=== PATIENT | male | born 1970 | race Caucasian/White ===

== ENCOUNTER 2019-05-02 17:35 | Emergency (ER) | payer OTHER ==
[2019-05-02 17:53] VITALS: BP 147/96; PULSE 85; TEMP 98.2; BMI 27.8
[2019-05-02] MEDS ORDERED: PIPERACILLIN/TAZOB 3.375 GM 3.375 GM in DEXTROSE 5%-WATER - 50 ML IVPB ONE (18:11)
[2019-05-02] MEDS ORDERED: VANCOMYCIN 1 GM in D5W (PRE-DOCKED) 1,000 MG/250 ML IVPB ONE (18:11)
--- NOTE | 2019-05-02 18:11 | PDOC ---
Documentation entered by Meryl Nguyen SCRIBE, acting as scribe for Solange Gonzalez MD. Solange Gonzalez MD: This documentation has been prepared by the Wendy ann Xhesika, SCRIBE, under my direction and personally reviewed by me in its entirety. I confirm that the documentation accurately reflects all work, treatment, procedures, and medical decision making performed by me. History of Present Illness - General Chief Complaint: Wound Stated Complaint: LEFT EAR SWELLING History Source: Patient Exam Limitations: No Limitations - History of Present Illness Initial Comments: 05/02/19 18:03 The patient is a 48 year old male, with a significant PMH of bipolar disorder who presents to the emergency department with one week of L ear swelling radiating down to his L neck. The patient states he had a small cyst on his L ear for the past year, however, recently, he has been picking on his ear trying to pop the pimple. The patient states his pain is an 8/10, worsened when lying on his ear and associated with yellow ear discharge. The patient notes his jaw and mouth were slightly stiff yesterday but has since been resolved. The patient denies chest pain, shortness of breath, headache and dizziness. Denies fever, chills, nausea, vomiting, diarrhea and constipation. Denies dysuria, frequency, urgency and hematuria. Allergies: NKA Past History - Past Medical History Allergies/Adverse Reactions: Allergies Allergy/AdvReac Type Severity Reaction Status Date / Time No Known Allergies Allergy Verified 05/02/19 17:37 Home Medications: Ambulatory Orders Zasperdone 80 mg PO BID 05/02/19 Review of Systems - Review of Systems Able to Perform ROS?: Yes Comments:: 05/02/19 18:05 GENERAL/CONSTITUTIONAL: No fever or chills. No weakness. HEAD, EYES, EARS, NOSE AND THROAT: (+) L ear swelling radiating to L neck. (+) L ear discharge. No change in vision. No sore throat. CARDIOVASCULAR: No chest pain or shortness of breath. RESPIRATORY: No cough, wheezing, or hemoptysis. GASTROINTESTINAL: No nausea, vomiting, diarrhea or constipation. GENITOURINARY: No dysuria, frequency, or change in urination. MUSCULOSKELETAL: No joint or muscle swelling or pain. No neck or back pain. SKIN: No rash NEUROLOGIC: No headache, vertigo, loss of consciousness, or change in strength/ sensation. ENDOCRINE: No increased thirst. No abnormal weight change. HEMATOLOGIC/LYMPHATIC: No anemia, easy bleeding, or history of blood clots. ALLERGIC/IMMUNOLOGIC: No hives or skin allergy. *Physical Exam - Vital Signs Last Vital Signs Temp Pulse Resp BP Pulse Ox 98.2 F 85 20 147/96 100 05/02/19 17:36 05/02/19 17:36 05/02/19 17:36 05/02/19 17:36 05/02/19 17:36 - Physical Exam Comments: 05/02/19 18:09 awake alert lungs clear bilat heart rrr no mrg abd soft nt nd left ear wtih significant swelling , anterior auricular nodes ttp. posterior auricular fullness, erythema lateral down to left lateral neck. pain with jaw opening. no trismus. ext wwp no edema. no calf tenderness. ED Treatment Course - RADIOLOGY Radiology Studies Ordered: Category Date Time Status SOFT TISSUE NECK CT WITH CONTR [CT] Stat CT Scan 05/02/19 18:06 Ordered Medical Decision Making - Medical Decision Making 05/02/19 18:10 48 yo h/o pre DM here with left ear swelling anterior lateral displacement concern for significant abscess, mastoiditis, plan iv abx vancomycin, zosyn, will obtain ct neck r/o mastoiditis. abscess. may require transfer for ENT evaluation. 05/02/19 18:33 pt not wanting to wait for CT and potentional transfer. will take his mother home and return or fu with ED for evluation and abx. explained to pt he will require abx and drainage by search developer. pt wishing to leave. would like to go directly to tertiary center for specialist evaluation after he brings his mother home. 05/02/19 18:37 *DC/Admit/Observation/Transfer Diagnosis at time of Disposition: Abscess, earlobe - Discharge Dispostion Disposition: AGAINST MEDICAL ADVICE Decision to Admit order: No - Referrals - Patient Instructions Printed Discharge Instructions: DI for Skin Abscess Additional Instructions: understand you need to have drainage of the abscess in your ear. you need to return to ED for evaluation immediately. this infection is very serious. please return [facility] for evaluation and treatment. - Post Discharge Activity
== END 2019-05-02 19:16 | disposition left against medical advice (07) ==
LOC: FER 17:35
DX: H60.02 Abscess of left external ear (principal); E11.9 Type 2 diabetes mellitus without complications; F31.9 Bipolar disorder, unspecified
CPT/HCPCS: 99281-25

== ENCOUNTER 2022-12-25 14:10 | Emergency (ER) | payer OTHER ==
[2022-12-25 14:23] VITALS: BP 143/84; PULSE 93; RESP 16; TEMP 98.7; BMI 27.3
[2022-12-25] MEDS ORDERED: IBUPROFEN 600 MG TABLET (FP) PO ONE (14:31)
[2022-12-25] MEDS ORDERED: IBUPROFEN 400 MG TABLET (FP) PO ONE (14:52)
== END 2022-12-25 15:05 | disposition home or self-care (01) ==
LOC: FER 14:10
DX: L03.115 Cellulitis of right lower limb (principal)
CPT/HCPCS: 73630-TC-RT-FY; 99283-25

== ENCOUNTER 2022-12-31 16:57 | Inpatient (IN) | payer OTHER ==
[2022-12-31] MEDS ORDERED: CEFAZOLIN SODIUM 2 GM VIAL IVPB ONE (19:07)
[2022-12-31] MEDS ORDERED: VANCOMYCIN 1 GM in D5W (PRE-DOCKED) 1,000 MG/250 ML IVPB ONE (19:07)
[2022-12-31] MEDS ORDERED: AMPICILLIN NA/SULBACTAM NA 3 GM in SODIUM CHLORIDE 100 ML IVPB ONE (19:10)
[2022-12-31] MEDS ORDERED: VANCOMYCIN/WATER FOR INJ (PEG) 1,000 MG/200 ML BAG IVPB ONE (19:27)
[2022-12-31] MEDS ORDERED: ACETAMINOPHEN 500 MG TABLET (FP) PO ONE (20:01)
[2022-12-31 20:06] LABS: BASO % 0.4 % (0-2.0); EOS % 0.3 % (0-4.5); HEMATOCRIT 41.3 % (35.4-49); HEMOGLOBIN 13.4 GM/dL (11.7-16.9); LYMPH % 16.1 % (8-40); MCH 27.1 pg (25.7-33.7); MCHC 32.4 g/dl (32.0-35.9); MEAN CELL VOLUME 83.5 fl (80-96); MEAN PLT VOLUME 7.1 fl (7.5-11.1); MONO % 7.4 % (3.8-10.2); NEUT % 75.8 % (42.8-82.8); PLATELET COUNT 331 10^3/uL (134-434); RBC 4.94 M/mm3 (4.00-5.60); RDW 13.8 % (11.9-15.9); WHITE BLOOD COUNT 13.7 K/mm3 (4.0-10.0)
[2022-12-31 20:11] LABS: INR 1.04 (0.83-1.09); PROTHROMBIN TIME (PATIENT) 12.1 SEC (9.7-13.0)
[2022-12-31 20:13] LABS: ACTIVATED PTT 33.4 SECONDS (25.2-36.5)
[2022-12-31 20:23] LABS: CALCIUM 9.1 mg/dL (8.5-10.1)
[2022-12-31 20:24] LABS: ALBUMIN 3.7 g/dl (3.4-5.0); BLOOD UREA NITROGEN 12.7 mg/dL (7-18); MAGNESIUM 2.3 mg/dL (1.8-2.4)
[2022-12-31 20:27] LABS: CREATININE 1.2 mg/dL (0.55-1.3); PHOSPHOROUS 3.4 mg/dL (2.5-4.9)
[2022-12-31 20:28] LABS: BILIRUBIN,TOTAL 0.4 mg/dL (0.2-1); TOT PROT 7.4 g/dl (6.4-8.2)
[2022-12-31 20:45] LABS: ERYTHROCYTE SEDIMENTATION RATE 42 mm/hr (0-20)
[2022-12-31] MEDS ORDERED: ACETAMINOPHEN 325 MG TABLET (FP) PO PRN (20:49)
[2022-12-31] MEDS ORDERED: ACETAMINOPHEN 325 MG TABLET (FP) ONE (21:52)
[2023-01-01] MEDS ORDERED: PIPERACILLIN/TAZOB 3.375 GM 3.375 GM in DEXTROSE 5%-WATER - 50 ML IVPB SCH ×2 (02:00→18:00)
[2023-01-01] MEDS: PIPERACILLIN/TAZOB 3.375 GM 3.375 GM in DEXTROSE 5%-WATER - 50 ML IVPB SCH ×3 (04:03→17:50)
[2023-01-01 08:48] VITALS: BMI 25.7
[2023-01-01] MEDS ORDERED: VANCOMYCIN/WATER FOR INJ (PEG) 1,000 MG/200 ML BAG IVPB ONE (10:00)
[2023-01-01 10:16] LABS: HEMATOCRIT 35.4 % (35.4-49); HEMOGLOBIN 11.9 GM/dL (11.7-16.9); MCH 28.3 pg (25.7-33.7); MCHC 33.6 g/dl (32.0-35.9); MEAN CELL VOLUME 84.3 fl (80-96); MEAN PLT VOLUME 7.5 fl (7.5-11.1); PLATELET COUNT 307 10^3/uL (134-434); RDW 13.8 % (11.9-15.9); WHITE BLOOD COUNT 12.4 K/mm3 (4.0-10.0)
[2023-01-01 10:36] LABS: CALCIUM 8.4 mg/dL (8.5-10.1)
[2023-01-01 10:41] LABS: BILIRUBIN,TOTAL 0.4 mg/dL (0.2-1); TOT PROT 6.1 g/dl (6.4-8.2)
[2023-01-01] MEDS ORDERED: BUPIVACAINE HCL/PF 0.5% (5MG/ML) 10 ML VIAL ONE (11:06)
[2023-01-01] MEDS ORDERED: LIDOCAINE HCL 1%, 10 MG/ML (20ML VIAL) ONE (11:06)
[2023-01-01] MEDS ORDERED: GENTAMICIN SO4 80 MG/2 ML VIAL ONE (11:41)
[2023-01-01] MEDS ORDERED: PROPOFOL 20 ML ONE (12:11)
[2023-01-01] MEDS ORDERED: SUCCINYLCHOLINE CHLORIDE 200 MG/10 ML SYRINGE ONE (12:11)
[2023-01-01] MEDS ORDERED: MIDAZOLAM HCL 2 MG/2 ML SINGLE DOSE VIAL ONE (12:11)
[2023-01-01] MEDS ORDERED: PROPOFOL 60 ML ONE (12:14)
[2023-01-01] MEDS ORDERED: ONDANSETRON 4 MG/2 ML VIAL IVPUSH PRN (12:50)
[2023-01-01] MEDS ORDERED: ACETAMINOPHEN 325 MG TABLET (FP) PO PRN (12:54)
[2023-01-01 13:19] LABS: BASO % 0.3 % (0-2.0); EOS % 0.7 % (0-4.5); HEMATOCRIT 35.2 % (35.4-49); HEMOGLOBIN 11.7 GM/dL (11.7-16.9); LYMPH % 17.6 % (8-40); MCH 27.8 pg (25.7-33.7); MCHC 33.2 g/dl (32.0-35.9); MEAN CELL VOLUME 83.9 fl (80-96); MONO % 8.8 % (3.8-10.2); NEUT % 72.6 % (42.8-82.8); PLATELET COUNT 281 10^3/uL (134-434); RDW 13.8 % (11.9-15.9); WHITE BLOOD COUNT 10.5 K/mm3 (4.0-10.0)
[2023-01-01] MEDS: LACTATED RINGERS SOLUTION 1,000 ML IV SCH (13:45)
[2023-01-01] MEDS: oxyCODONE HCL 5 MG TABLET PO PRN (22:00)
[2023-01-02] MEDS: LACTATED RINGERS SOLUTION 1,000 ML IV SCH ×3 (00:15→21:40)
[2023-01-02] MEDS: PIPERACILLIN/TAZOB 3.375 GM 3.375 GM in DEXTROSE 5%-WATER - 50 ML IVPB SCH ×3 (02:24→17:17)
[2023-01-02] MEDS: oxyCODONE HCL 5 MG TABLET PO PRN ×2 (04:10→21:38)
[2023-01-02] MEDS ORDERED: ONDANSETRON *ODT* 4 MG TABLET SL PRN (09:52)
[2023-01-02] MEDS ORDERED: BISMUTH SUBSALICYLATE 262 MG/15 ML BTL PO PRN (10:00)
[2023-01-02] MEDS: HEPARIN NA (PORCINE) 5,000 UNITS/ML 1ML VIAL SQ SCH ×2 (10:17→21:14)
[2023-01-02 14:44] VITALS: RESP 18
[2023-01-03] MEDS: PIPERACILLIN/TAZOB 3.375 GM 3.375 GM in DEXTROSE 5%-WATER - 50 ML IVPB SCH ×2 (03:35→09:06)
[2023-01-03 08:11] VITALS: BP 124/78; PULSE 62; TEMP 97.8
[2023-01-03] MEDS: HEPARIN NA (PORCINE) 5,000 UNITS/ML 1ML VIAL SQ SCH (09:05)
[2023-01-03] MEDS: oxyCODONE HCL 5 MG TABLET PO PRN (10:00)
[2023-01-03 12:03] LABS: BASO % 0.4 % (0-2.0); EOS % 1.1 % (0-4.5); HEMATOCRIT 40.3 % (35.4-49); HEMOGLOBIN 13.3 GM/dL (11.7-16.9); LYMPH % 37.4 % (8-40); MCH 28.1 pg (25.7-33.7); MEAN CELL VOLUME 85.2 fl (80-96); MEAN PLT VOLUME 6.8 fl (7.5-11.1); MONO % 7.6 % (3.8-10.2); NEUT % 53.5 % (42.8-82.8); PLATELET COUNT 357 10^3/uL (134-434); RBC 4.73 M/mm3 (4.00-5.60); RDW 14.1 % (11.9-15.9); WHITE BLOOD COUNT 7.1 K/mm3 (4.0-10.0)
== END 2023-01-03 12:22 | disposition home or self-care (01) | DRG 603 ==
LOC: JER 16:57 → INTOOBSV 18:59 → JERBED 18:59 → UNDOADMOB 18:59 → JERBED 20:47 → J6S 22:26 → JERBED 22:26 → J6S 22:26 → OBSVTOIN 01-03 09:58
PROVIDERS: ADMIT Internal Medicine; ATTEND Family Medicine
DX: L02.611 Cutaneous abscess of right foot (principal); F31.9 Bipolar disorder, unspecified; R73.03 Prediabetes; L97.519 Non-pressure chronic ulcer of other part of right foot with unspecified severity; B95.62 Methicillin resistant Staphylococcus aureus infection as the cause of diseases classified elsewhere
CPT/HCPCS: 0241U-QW; 36415; 73630-TC-RT-FY; 80053; 83735; 84100; 84443; 85025; 85027; 85610; 85651; 85730; 86140; 86850; 86900; 86901; 87040; 87070; 87186; 87205; 88304-TC; 93005; 93010; 94760; 97116-GP; 97162-GP; 99285-25; G0378; J1644